=== PATIENT | female | born 1930 | race African-American/Black ===

== ENCOUNTER 2016-10-26 19:08 | Emergency (ER) | payer MEDICARE ==
[~2016-10-26] VITALS: Ht 165.1 cm; Wt 73.9 kg
[2016-10-26] MEDS ORDERED: POTASSIUM CHLO20 ME1 ORAL (20:08)
[2016-10-26] MEDS ORDERED: NITROGLYCERIN0.4 MG SL (20:08)
[2016-10-26] MEDS ORDERED: ARTHROTEC1 TAB ORAL (20:08)
[2016-10-26] MEDS ORDERED: DIGOXIN250 MCG ORAL (20:08)
[2016-10-26] MEDS ORDERED: AMLODIPINE BESYL5 MG ORAL (20:08)
[2016-10-26] MEDS ORDERED: VASOTEC10 MG ORAL (20:08)
[2016-10-26] MEDS ORDERED: ISOSORBIDE MON120 M1 PO (20:08)
[2016-10-26] MEDS ORDERED: VITAMIN B COMP1 EAC7 PO (20:08)
[2016-10-26] MEDS ORDERED: BETAPACE120 MG PO (20:08)
[2016-10-26] MEDS ORDERED: COUMADIN5 MG ORAL (20:08)
[2016-10-26] MEDS ORDERED: OMEGA-31000 M1 PO (20:08)
[2016-10-26] MEDS ORDERED: TOPROL XL25 MG ORAL (20:08)
[2016-10-26] MEDS ORDERED: NIASPAN500 M1 ORAL (20:08)
[2016-10-26] MEDS ORDERED: VITAMIN D1000 UNI1 ORAL (20:08)
--- NOTE | 2016-10-26 20:24 | Emergency Room Report ---
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 locker room attendant last week and has a followup with a vascular specialist this upcoming week Denies any change in the pain with position or ambulation Denies any discoloration of the leg Allergies: Coded Allergies: PENICILLINS (Unverified Adverse Reaction, SYNCOPE, 08/02/12) Patient History Past Medical History: see triage record Pertinent Family History: none Reviewed Nursing Documentation: PMH: Agreed, PSxH: Agreed Nursing Documentation-PMH Hx Cardiac Problems: Yes - MD,ARTERY BYPASS LEFT LEG Hx Hypertension: Yes Hx Pacemaker: No Hx Asthma: No Hx COPD: No Hx Diabetes: No Hx Cancer: No Hx Gastrointestinal Problems: No Hx Dialysis: No Hx Neurological Problems: No Hx Cerebrovascular Accident: No Hx Seizures: No Review of Systems All Other Systems: negative except mentioned in HPI Physical Exam Vital Signs Date Time Temp Pulse Resp B/P Pulse Ox O2 Delivery O2 Flow Rate FiO2 10/26/16 19:19 99.0 105 16 144/91 96 Room Air Sp02 EP Interpretation: reviewed, normal General Appearance: well appearing, no apparent distress Head: normocephalic, atraumatic Eyes: bilateral eye EOMI, bilateral eye PERRL ENT: hearing grossly normal, normal pharynx, TMs + canals normal, uvula midline Neck: full range of motion, supple, no meningismus, no bony tend Respiratory: lungs clear, normal breath sounds, no rhonchi, no respiratory distress, no retraction, no accessory muscle use Cardiovascular #1: normal peripheral pulses, no edema, no gallop, no JVD, no murmur, irregularly irregular Gastrointestinal: normal bowel sounds, non tender, soft, no mass, no organomegaly, non-distended, no guarding, no hernia, no pulsatile mass, no rebound Genitourinary: no CVA tenderness Musculoskeletal: other - Patient has a fairly benign evaluation the right lower extremity, no obvious edema, neurovascularly intact Neurologic: oriented x3, responsive, sample patternmaker III-XII nml as tested, motor strength/ tone normal, sensory intact Psychiatric: mood/affect normal Skin: normal color, no rash, warm/dry, palpation normal Lymphatic: normal inspection, no adenopathy Medical Decision Making Diagnostic Impression: Primary Impression: Vascular disease ER Course Multiple differentials was obtained Including but not limited to vascular, infectious cardiac pathology Patient's INR is appropriately anticoagulated Venous ultrasound does not reveal any obvious DVT, arterial ultrasound significantly limited Patient has swelling in the popliteal area Given the patient's warm palpation of the foot given the palpable pulse dorsally There is no obvious complete blockage Patient has known vascular disease And is getting set for close outpatient followup I do not feel that any further inpatient intervention was emergently required, , Labs Test 10/26/16 20:00 White Blood Count 11.4 K/UL (4.8-10.8) Red Blood Count 4.65 M/UL (4.20-5.40) Hemoglobin 13.8 G/DL (12.0-16.0) Hematocrit 41.2 % (37.0-47.0) Mean Corpuscular Volume 89 FL (80-99) Mean Corpuscular Hemoglobin 29.8 PG (27.0-31.0) Mean Corpuscular Hemoglobin Concent 33.6 G/DL (32.0-36.0) Red Cell Distribution Width 12.9 % (11.6-14.8) Platelet Count 162 K/UL (150-450) Mean Platelet Volume 8.0 FL (6.5-10.1) Neutrophils (%) (Auto) 74.2 % (45.0-75.0) Lymphocytes (%) (Auto) 15.5 % (20.0-45.0) Monocytes (%) (Auto) 9.3 % (1.0-10.0) Eosinophils (%) (Auto) 0.4 % (0.0-3.0) Basophils (%) (Auto) 0.6 % (0.0-2.0) Prothrombin Time 23.3 SEC (9.30-11.50) Prothromb Time International Ratio 2.2 (0.9-1.1) Activated Partial Thromboplast Time 42 SEC (23-33) Sodium Level 133 mEQ/L (135-145) Potassium Level 3.8 mEQ/L (3.4-4.9) Chloride Level 91 mEQ/L (98-107) Carbon Dioxide Level 26 mEQ/L (20-30) Anion Gap 16 (5-15) Blood Urea Nitrogen 13 mg/dL (7-23) Creatinine 0.8 mg/dL (0.5-0.9) Estimat Glomerular Filtration Rate mL/min (>60) Glucose Level 124 mg/dL (74-106) Calcium Level 9.8 mg/dL (8.6-10.2) Total Bilirubin 0.7 mg/dL (0.0-1.2) Aspartate Amino Transf (AST/SGOT) 19 U/L (5-40) Alanine Aminotransferase (ALT/SGPT) 14 U/L (3-33) Alkaline Phosphatase 80 U/L (35-104) Total Creatine Kinase 103 U/L (26-140) Creatine Kinase MB 1.8 ng/mL (< 3.8) Creatine Kinase MB Relative Index 1.7 Total Protein 7.5 g/dL (6.6-8.7) Albumin 4.4 g/dL (3.5-5.2) Globulin 3.1 g/dL Albumin/Globulin Ratio 1.4 (1.0-2.7) Chest X-Ray Diagnostic Results Chest X-Ray Ordered: No Other X-Ray Diagnostic Results X-Ray ordered: right knee # of Views/Limited Vs Complete: 3 View Interpretation: no fractures, no dislocation, other - Arthritic changes, mild edema Indication: Pain Impression: Other - Osteoarthritic changes Date Electronically Signed: Oct 27, 2016 Time Electronically Signed: 04:08 Electronically Signed by: Dr nguyen Last Vital Signs Date Time Temp Pulse Resp B/P Pulse Ox O2 Delivery O2 Flow Rate FiO2 10/26/16 19:19 99.0 105 16 144/91 96 Room Air Status: improved Disposition: HOME, SELF-CARE Condition: Improved Additional Instructions: Patient is provided with the discharge instructions notified to follow up with primary doctor in the next 2-3 days otherwise return to the er with any worsening symptoms. Please note that this report is being documented using [employer] technology. This can lead to erroneous entry secondary to incorrect interpretation by the dictating instrument. GLENYS NGUYEN D.O. Oct 26, 2016 20:24
[2016-10-26 20:27] LABS: BASOPHILS % (AUTO) 0.6 % (0.0-2.0); EOSINOPHILS % (AUTO) 0.4 % (0.0-3.0); LYMPHOCYTES % (AUTO) 15.5 % (20.0-45.0); MEAN CORPUSCULAR HEMOGLOBIN 29.8 PG (27.0-31.0); MEAN CORPUSCULAR HGB CONC 33.6 G/DL (32.0-36.0); MEAN CORPUSCULAR VOLUME 89 FL (80-99); MONOCYTES % (AUTO) 9.3 % (1.0-10.0); NEUTROPHILS % (AUTO) 74.2 % (45.0-75.0); PLATELET COUNT 162 K/UL (150-450); RED BLOOD COUNT 4.65 M/UL (4.20-5.40); RED CELL DISTRIBUTION WIDTH 12.9 % (11.6-14.8); WHITE BLOOD COUNT 11.4 K/UL (4.8-10.8)
[2016-10-26 20:40] LABS: INR 2.2 (0.9-1.1); PROTHROMBIN TIME 23.3 SEC (9.30-11.50)
[2016-10-26 20:47] LABS: ALANINE AMINOTRANSFERASE 14 U/L (3-33); ALBUMIN/GLOBULIN RATIO 1.4 (1.0-2.7); ANION GAP 16 (5-15); ASPARTATE AMINO TRANSFERASE 19 U/L (5-40); CALCIUM 9.8 mg/dL (8.6-10.2); CARBON DIOXIDE 26 mEQ/L (20-30); CHLORIDE 91 mEQ/L (98-107); CREATININE 0.8 mg/dL (0.5-0.9); HEMOLYSIS 6; POTASSIUM 3.8 mEQ/L (3.4-4.9); SODIUM 133 mEQ/L (135-145); TOTAL PROTEIN 7.5 g/dL (6.6-8.7)
[2016-10-26 20:57] LABS: CKMB 1.8 ng/mL (< 3.8)
[2016-10-26 22:03] VITALS: BP 135/90
--- NOTE | 2016-10-28 08:16 | Cardiology Report ---
APPROVED REPORT EKG Measurement Heart [id number] Atrial fibrillation Nonspecific ST and T wave abnormality Abnormal ECG
--- NOTE | 2016-10-28 11:25 | Diagnostic Imaging Report ---
Indication: PAIN Technique: 3 views of the right knee Comparison: None Findings:There is lateral compartment severe degenerative joint space narrowing. There is also some mild medial compartment and patellofemoral compartment degenerative disease. The bones are osteoporotic. No acute fractures. No dislocations. There are vascular calcifications Impression:Degenerative changes, as described No acute bony trauma Osteoporotic change
== END 2016-10-26 22:06 | disposition home or self-care (01) ==
LOC: EMR 19:50
DX: I99.9 Unspecified disorder of circulatory system (principal); Z79.01 Long term (current) use of anticoagulants; I48.91 Unspecified atrial fibrillation; Z88.0 Allergy status to penicillin; I10 Essential (primary) hypertension; I25.2 Old myocardial infarction; M19.90 Unspecified osteoarthritis, unspecified site
CPT/HCPCS: 36415; 80053; 82550; 82553; 85025; 85610; 85730; 93005; 93926; 93971; 99283